=== PATIENT | female | born 1965 | race Caucasian/White ===

== ENCOUNTER 2023-08-28 17:58 | Inpatient (IN) | payer OTHER ==
[~2023-08-28] VITALS: Ht 160 cm; Wt 108.9 kg
[2023-08-28] MEDS ORDERED: BRILINTA90 MG (18:14)
[2023-08-28] MEDS ORDERED: CHILDREN'S ASPI81 MG (18:14)
[2023-08-28] MEDS ORDERED: ZESTRIL20 MG (18:14)
[2023-08-28] MEDS ORDERED: ALDACTONE25 MG (18:15)
[2023-08-28] MEDS ORDERED: TOPROL XL100 M1 (18:15)
[2023-08-28] MEDS ORDERED: ATORVASTATIN CA20 MG (18:15)
[2023-08-28 20:14] LABS: MEAN CELL VOLUME 93.6 fL (80.00-100.00); MEAN CORPUSCULAR HEMOGLOBIN 32.5 pg (27.00-32.0); MEAN CORPUSCULAR HGB CONC 34.5 g/dl (32.0-36.0); PLATELET COUNT 204 K/uL (150-450); RED BLOOD COUNT 2.18 M/uL (4.00-6.00); RED CELL DISTRIBUTION WIDTH 13.5 % (11.5-14.5)
[2023-08-28 20:18] LABS: HEMATOCRIT 20.4 % (36.0-45.00); HEMOGLOBIN 7.1 g/dL (12.0-15.00)
[2023-08-28 20:54] LABS: ALBUMIN 3.2 gm/dL (3.4-5.0); BILIRUBIN TOTAL 0.37 mg/dL (0.3-1.2); CALCIUM 8.5 mg/dL (8.5-10.1); GFR 56.95; GLOBULINA 2.9 G/DL (2.4-3.5); POTASSIUM 3.65 mEq/L (3.5-5.1); TOTAL PROTEIN 6.1 gm/dL (6.4-8.2)
[2023-08-29 04:14] LABS: ABG PH 7.438 (7.35-7.45); ABG PO2 172.6 mmHg (80-100); ABG pCO2 32.1 mmHg (35-45); BASE EXCESS -1.9 mmol/l; BICARBONATE 21.2 mmol/l (23-25); SaO2 99.6 %; Tco2 22.2 mmol/l
[2023-08-29 04:15] LABS: allen test SATISFACTORY; o2 36 %; puncture site RADIAL RIGHT
[2023-08-29 04:42] LABS: RH POSITIVE
[2023-08-29 20:23] LABS: ALBUMIN 3.1 gm/dL (3.4-5.0); ALKALINE PHOSPHATASE 55 U/L (50-136); ALT/SGPT 18 U/L (12-78); ANION GAP 10 (10.0-20.0); AST/SGOT 15 U/L (15-37); BILIRUBIN TOTAL 1.34 mg/dL (0.3-1.2); BILIRUBIN,CONJUGATED 0.38 mg/dL (0.0-0.2); BILIRUBIN,UNCONJUGATED 0.96 mg/dL (0.0-0.6); BLOOD UREA NITROGEN 24 mg/dL (7-18); BUN CREA RATIO 30 (7.0-25.0); CALCIUM 8.2 mg/dL (8.5-10.1); CARBON DIOXIDE 25 mEq/L (21-32); CHLORIDE 111 mmol/L (98-107); CHOL HDL RATIO 2.8 (0-5.0); CHOLESTEROL 92 mg/dL (0-200); CREATININE SERUM 0.81 mg/dL (0.55-1.02); GFR 72.62; GLOBULINA 2.4 G/DL (2.4-3.5); GLUCOSE FASTING 115 mg/dL (65-100); HDL 33 mg/dl (40-60); LDL 34 mg/dl (0-130); OSMOLALITY SERUM 288 MOSM/KG (275-295); POTASSIUM 3.66 mEq/L (3.5-5.1); SODIUM 142 mmol/L (136-145); TOTAL PROTEIN 5.5 gm/dL (6.4-8.2); TRIGLYCERIDES 123 mg/dL (0-150); VLDL 24 (0-39)
[2023-08-29 20:26] LABS: C-REACTIVE PROTEIN < 0.29 MG/DL (0.00-0.29)
[2023-08-29 21:27] LABS: HEMATOCRIT 24.3 % (36.0-45.00); MEAN CELL VOLUME 87.8 fL (80.00-100.00); MEAN CORPUSCULAR HGB CONC 36.2 g/dl (32.0-36.0); PLATELET COUNT 160 K/uL (150-450); RED BLOOD COUNT 2.76 M/uL (4.00-6.00)
[2023-08-29 21:28] LABS: MEAN CORPUSCULAR HEMOGLOBIN 31.8 pg (27.00-32.0)
[2023-08-29 21:29] LABS: HEMOGLOBIN 8.8 g/dL (12.0-15.00); RED CELL DISTRIBUTION WIDTH 16.9 % (11.5-14.5)
[2023-08-29 21:41] LABS: ERYTHROCYTE SEDIMENTATION RATE < 1 mm/hr
[2023-08-30 08:18] LABS: PARTIAL THROMBOPLASTIN TIME 21.1 SECONDS (22.0-34.0); PROTHROMBIN TIME 10.5 SECONDS (9.0-11.5)
[2023-08-31 08:04] LABS: HEMATOCRIT 23.9 % (36.0-45.00); MEAN CELL VOLUME 91.5 fL (80.00-100.00); PLATELET COUNT 177 K/uL (150-450); RED BLOOD COUNT 2.61 M/uL (4.00-6.00); RED CELL DISTRIBUTION WIDTH 17.2 % (11.5-14.5)
[2023-08-31 08:18] LABS: HEMOGLOBIN 8.1 g/dL (12.0-15.00)
== END 2023-08-31 18:18 | disposition home or self-care (01) | DRG 812 ==
LOC: ER 17:58 → EDBD 18:20 → MEDJ 23:05
PROVIDERS: General Practice; ADMIT Specialist; ATTEND Specialist
PROC: 4A12X4Z Monitoring of Cardiac Electrical Activity, External Approach (ICD-10-PCS; principal; 2023-08-29)
PROC: 30233N1 Transfusion of Nonautologous Red Blood Cells into Peripheral Vein, Percutaneous Approach (ICD-10-PCS; 2023-08-29)
PROC: BW21ZZZ Computerized Tomography (CT Scan) of Abdomen and Pelvis (ICD-10-PCS; 2023-08-29)
DX: D64.9 Anemia, unspecified (principal); E86.0 Dehydration; I10 Essential (primary) hypertension; E11.9 Type 2 diabetes mellitus without complications; Z79.4 Long term (current) use of insulin; Z20.822 Contact with and (suspected) exposure to COVID-19